=== PATIENT | male | born 1965 | race Hispanic/Latino ===

== ENCOUNTER 2018-07-05 08:37 | Day surgery (SDC) | payer OTHER ==
[2018-07-05] MEDS ORDERED: Lactated Ringer's 500 ML IV ONE (12:15)
[2018-07-05] MEDS ORDERED: Propofol 10 mg/ml Inj (20 ML) ONE ×2 (12:15→12:16)
[2018-07-05] MEDS ORDERED: Lactated Ringer's 500 ML IV SCH (12:30)
[2018-07-05 12:57] VITALS: TEMP 98.5; O2SAT 100
[2018-07-05 14:10] VITALS: BP 121/67; PULSE 66; RESP 16
== END 2018-07-05 14:05 | disposition home or self-care (01) ==
LOC: C.ENDO 08:37
PROVIDERS: ATTEND Internal Medicine Gastroenterology
DX: Z12.11 Encounter for screening for malignant neoplasm of colon (principal); K64.8 Other hemorrhoids
CPT/HCPCS: 45378; J2704; J3010; J7120